=== PATIENT | male | born 1980 | race Caucasian/White ===

== ENCOUNTER 2020-01-28 09:20 | Emergency (ER) | payer MEDICAID, SELFPAY ==
[2020-01-28] MEDS ORDERED: Boostrix 0.5 ML VIAL ONE (09:42)
[2020-01-28] MEDS ORDERED: Lidocaine 1% w/Epinephrine 1:100K 20 ML VIAL ONE (09:42)
== END 2020-01-28 10:38 | disposition home or self-care (01) ==
LOC: ERS 09:20
DX: L02.411 Cutaneous abscess of right axilla (principal)
CPT/HCPCS: 10060; 90471; 90715

== ENCOUNTER 2020-02-05 20:23 | Emergency (ER) | payer SELFPAY ==
[2020-02-05] MEDS ORDERED: Lidocaine 1% w/Epinephrine 1:100K 20 ML VIAL ONE ×2 (23:19→23:20)
[2020-02-06] MEDS ORDERED: Sulfameth/Trimethoprim DS 800-160mg TAB ONE (00:18)
== END 2020-02-06 00:49 | disposition home or self-care (01) ==
LOC: ERS 20:23
DX: L02.411 Cutaneous abscess of right axilla (principal)
CPT/HCPCS: 10060